=== PATIENT | male | born 1990 | race Caucasian/White ===

== ENCOUNTER 2020-12-06 13:36 | Emergency (ER) | payer BC ==
[2020-12-06] MEDS ORDERED: Ondansetron 4 MG/2 ML SDV ONE (13:47)
[2020-12-06] MEDS ORDERED: Sodium Chloride 0.9% 2.5 ML Syringe FLUSH PRN (13:51)
[2020-12-06] MEDS ORDERED: Sodium Chloride 0.9% 10 ML Syringe FLUSH PRN (13:51)
[2020-12-06] MEDS ORDERED: Sodium Chloride 0.9% 1,000 ML IV ONE (13:53)
[2020-12-06] MEDS ORDERED: Ondansetron 4 MG/2 ML SDV IVPUSH ONE (13:56)
[2020-12-06] MEDS ORDERED: LORazepam 2 MG/ML SDV IVPUSH ONE (14:28)
[2020-12-06] MEDS ORDERED: LORazepam 2 MG/ML SDV ONE (14:29)
[2020-12-06] MEDS ORDERED: LEVETIRACETAM IV STA ×2 (14:34)
[2020-12-06] MEDS ORDERED: WATER IV STA ×2 (14:34)
[2020-12-06] MEDS ORDERED: DEXTROSE 5% IV STA ×2 (14:34)
--- NOTE | 2020-12-06 14:48 | EDM.PDOC ---
ED HPI GENERAL MEDICAL PROBLEM - General Chief Complaint: Neurological Problem Stated Complaint: TRAUMA CODE Time Seen by Provider: 12/06/20 14:06 Source of Information: Reports: Patient History Limitations: Reports: No Limitations - History of Present Illness INITIAL COMMENTS - FREE TEXT/NARRATIVE: HISTORY AND PHYSICAL: History of present illness: Patient is a 30-year-old male who presents emergency room today via EMS with concern of seizure-like activity and head injury that occurred just prior to travel to the emergency room. According to EMS, patient was at work and was walking across a field when he collapsed, hit the back of his head on the bumper and states that he continued to have 2 consecutive seizures that were grand mal and witnessed by employees. is here at bedside who states patient has no health history and has never had a seizure disorder before. Patients states that 1 week ago, patient was sick after working out and states that he was running on a treadmill and complained of a headache and was vomiting. states that since then, he has been better and has not been complaining of anything. Upon arrival to the ED, patient appears to be in a postictal state but is complaining of a headache. Patient does not have a cervical collar via EMS and the cervical collar was quickly placed upon arrival to the ED. Patient is actively vomiting on exam. Patient is alert and oriented to person, place but not time. Review of systems: As per history of present illness and below otherwise all systems reviewed and negative. Past medical history: As per history of present illness and as reviewed below otherwise noncontributory. Surgical history: As per history of present illness and as reviewed below otherwise noncontributory. Social history: See social history for further information Family history: As per history of present illness and as reviewed below otherwise noncontributory. Physical exam: General: Patient is confused but alert to person, place but not time. Actively vomiting on exam. No cervical collar via EMS. Vitals stable. HEENT: Atraumatic, normocephalic, pupils equal and reactive bilaterally, negative for conjunctival pallor or scleral icterus, mucous membranes moist, throat clear, nontender, trachea midline. No drooling or trismus noted. No meningeal signs. No hot potato voice noted. Lungs: Clear to auscultation, breath sounds equal bilaterally, chest nontender. Heart: S1S2, regular rate and rhythm without overt murmur Abdomen: Soft, nondistended, nontender. Negative for masses or hepatospleno megaly. Negative for costovertebral tenderness. Pelvis: Stable nontender. Genitourinary: Deferred. Rectal: Tone intact. Hemoccult negative. Skin: Intact, warm, dry. No lesions or rashes noted. Extremities: No obvious deformity of the complete spine. No step-offs, crepitus, or point tenderness palpation of the complete spine. Otherwise, atraumatic, negative for cords or calf pain. Neurovascular unremarkable. Neuro: Patient is post-ictal confused but alert to person, place but not time. Patient does not move his left lower ankle/digits. Patient does have intact sensation to all extremities and able to move bilateral upper extremities and RLE. Able to bend left knee/hip. Bilateral radial pulses intact DP/PT pulses intact. Patient does have some twitching (extrapyramidal-like) movements of his mouth periodically on exam. Notes: Dr. Sanchez directly involved in patient care. Upon arrival to the ED, patient was vitally stable, he was confused but was alert to person and place but mildly confused about time. On exam, cervical collar was placed immediately upon arrival to the ED as patient did not have 1 intact via EMS. Patient does have rectal tone on exam but does have inability to move his left ankle and digits but is able to move the left knee. Patient is otherwise able to move all extremities and has no tenderness of his spine on exam. After patient had come back from his head CT scan, he did begin actively seizing on exam. 4 mg of IV Ativan was given immediately and patient had stopped shaking. Loading dose of Keppra also given at this time. However, he was not protecting his airway and had secretions. Because of his inability to protect his airway, it was decided that patient should be intubated for airway protection. Dr. Sanchez is at bedside and performing intubation. See Dr. Sanchez's dictation for further RSI sequence intubation dictation. Prior to radiology interpretation, I did see that patient does have a large brain bleed on my examination of his head CT. Flight was placed on standby at this time. I did call [facility] and spoke to Dr. Begum who states that at this time, there are no ICU bed capability at their facility but states that if all other places in [place] do not have ICU beds, they can accept patient to wait in the emergency room. I did call the [facility] on-call number and they state that no other beds have any ICU capability. Head CT does show extensive subarachnoid hemorrhage consistent with ruptured right anterior communicating artery aneurysm. Large clot seen medial to the right frontal lobe along the anterior interhemispheric fissure. Mild mass- effect with mild effacement of the right lateral ventricle and 5 mm right to left midline shift. No sign of descending transtentorial herniation. Did call and speak to the neurosurgeon on-call for [facility], Dr. Lane, and thoroughly discussed patient's case. He states the only place in the [facility] that addresses aneurysm bleeds is . I did call and speak to the neurosurgeon on-call for , Dr. Aguilar, and thoroughly discussed patient's case. Accepting of transfer. Flight arranged. Post intubation shows that patient is vitally stable with a blood pressure 144/84 and otherwise vitally stable. Flight at bedside and patient transferred to flight care in stable but critical condition. Nursing staff has received a call from the flight staff that they are no longer able to fly to [place] due to weather concern. I have made multiple calls to other facilities ([facility], [facility], [facility]-while on the phone with [facility], flight staff called back stating they are able to make an alternate route to [place]) There was a delay in patient transfer due to this. Diagnostics: CBC, CMP, lactic acid, troponin, prolactin, etoh alcohol, urine drug screen, UA, Head CT w/o cont, cervical spine CT Therapeutics: Fentanyl, Keppra, Ativan, nicardipine gtt (titrate for bp goal <140/90), Zofran, propofol (Intubation/RSI performed by Dr. 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 Aguilar Critical care time is exclusive of billable procedures and the time to perform these procedures. Critical care time was used to prevent vital system organ failure and deterioration. Critical care time includes bedside management and high-complexity decision making requiring my highest level of mental preparedness and attention. This includes reviewing the patient's chart and prior medical records, ordering and reviewing interpreting laboratory studies and imaging results, interpretation of vital signs and EKG, pulse oximetry, and discussion with the admitting team along with flight and nursing staff. Patient presented with multiple critical physical exam findings and imaging that required immediate intervention, acute respiratory failure intubation and transfer to a higher level facility for continuation of treatment CC Time: 90 minutes Definitive disposition and diagnosis as appropriate pending reevaluation and review of above. headache Pain Score (Numeric/FACES): 6 - Related Data Allergies Allergy/AdvReac Type Severity Reaction Status Date / Time No Known Allergies Allergy Verified 12/06/20 13:59 Home Meds: Home Meds . [No Known Home Meds] 02/16/15 [History] Past Medical History - Past Health History Medical/Surgical History: Denies Medical/Surgical History - Infectious Disease History Infectious Disease History: Reports: Chicken Pox - Past Surgical History GI Surgical History: Reports: Appendectomy Social & Family History - Family History Family Medical History: No Pertinent Family History - Tobacco Use Tobacco Use Status *Q: Current Every Day Tobacco User Years of Tobacco use: 1 Packs/Tins Daily: 1 - Recreational Drug Use Recreational Drug Use: No ED ROS GENERAL - Review of Systems Review Of Systems: Comprehensive ROS is negative, except as noted in HPI. ED EXAM, GENERAL - Physical Exam Exam: See Below (see dictation) Course - Vital Signs Last Recorded V/S: Last Vital Signs Temp 98.2 F 12/06/20 15:57 Pulse 84 12/06/20 15:57 Resp 20 12/06/20 15:57 BP 139/82 12/06/20 15:57 Pulse Ox 100 12/06/20 15:57 - Orders/Labs/Meds Orders: Active Orders 24 hr Category Date Time Status REFLEX LACTIC ACID YES OR NO [CHEM] Routine Lab 12/06/20 14:52 Received Desired Level of Sedation (RASS) [AST] Click to Edit Oth 12/06/20 15:19 Ordered Saline Lock Insert [OM.PC] Stat Oth 12/06/20 13:51 Ordered Labs: Laboratory Tests 12/06/20 12/06/20 12/06/20 Range/Units 14:01 14:01 14:01 WBC 13.77 H (4.0-11.0) K/uL RBC 4.71 (4.50-5.90) M/uL Hgb 14.1 (13.0-17.0) g/dL Hct 40.6 (38.0-50.0) % MCV 86.2 (80.0-98.0) fL MCH 29.9 (27.0-32.0) pg MCHC 34.7 (31.0-37.0) g/dL RDW Std Deviation 38.6 (28.0-62.0) fl RDW Coeff of Abel 12 (11.0-15.0) % Plt Count 349 (150-400) K/uL MPV 9.40 (7.40-12.00) fL Neut % (Auto) 80.5 H (48.0-80.0) % Lymph % (Auto) 10.1 L (16.0-40.0) % [place] % (Auto) 8.4 (0.0-15.0) % Eos % (Auto) 0.8 (0.0-7.0) % Baso % (Auto) 0.2 (0.0-1.5) % Neut # (Auto) 11.1 H (1.4-5.7) K/uL Lymph # (Auto) 1.4 (0.6-2.4) K/uL [place] # (Auto) 1.2 H (0.0-0.8) K/uL Eos # (Auto) 0.1 (0.0-0.7) K/uL Baso # (Auto) 0.0 (0.0-0.1) K/uL Nucleated RBC % 0.0 /100WBC Nucleated RBCs # 0 K/uL Sodium 142 (136-148) mmol/L Potassium 4.0 (3.5-5.1) mmol/L Chloride 105 (98-107) mmol/L Carbon Dioxide 27.5 (21.0-32.0) mmol/L BUN 19 H (7.0-18.0) mg/dL Creatinine 1.2 (0.8-1.3) mg/dL Est Cr Clr Drug Dosing 93.24 mL/min Estimated GFR (MDRD) > 60.0 ml/min Glucose 154 H (74-106) mg/dL Lactic Acid 3.3 H* (0.4-2.0) mmol/L Calcium 8.3 L (8.5-10.1) mg/dL Total Bilirubin 0.8 (0.2-1.0) mg/dL AST 17 (15-37) IU/L ALT 29 (14-63) IU/L Alkaline Phosphatase 67 (46-116) U/L Creatine Kinase 59 (26-308) U/L Troponin I < 0.050 (0.000-0.056) ng/mL Total Protein 6.9 (6.4-8.2) g/dL Albumin 3.9 (3.4-5.0) g/dL Globulin 3.0 (2.6-4.0) g/dL Albumin/Globulin Ratio 1.3 (0.9-1.6) Prolactin 45.7 ng/mL Urine Color Urine Appearance Urine pH (5.0-8.0) Ur Specific [place] (1.001-1.035) Urine Protein (NEGATIVE) mg/dL Urine Glucose (UA) (NEGATIVE) mg/dL Urine Ketones (NEGATIVE) mg/dL Urine Occult Blood (NEGATIVE) Urine Nitrite (NEGATIVE) Urine Bilirubin (NEGATIVE) Urine Urobilinogen (<2.0) EU/dL Ur Leukocyte Esterase (NEGATIVE) Urine RBC (0-2/HPF) Urine WBC (0-5/HPF) Ur Epithelial Cells (NONE-FEW) Urine Bacteria (NEGATIVE) Urine Mucus (NONE-MOD) Urine Opiates Screen (NEGATIVE) Ur Oxycodone Screen (NEGATIVE) Urine Methadone Screen (NEGATIVE) Ur Barbiturates Screen (NEGATIVE) Ur Phencyclidine Scrn (NEGATIVE) Ur Amphetamine Screen (NEGATIVE) U Methamphetamines Scrn (NEGATIVE) U Benzodiazepines Scrn (NEGATIVE) U Cocaine Metab Screen (NEGATIVE) U Marijuana (THC) Screen (NEGATIVE) Ethyl Alcohol < 3.0 mg/dL SARS-CoV-2 RNA (VENKAT) (NEGATIVE) Blood Type Antibody Screen 12/06/20 12/06/20 12/06/20 Range/Units 14:01 15:31 15:31 WBC (4.0-11.0) K/uL RBC (4.50-5.90) M/uL Hgb (13.0-17.0) g/dL Hct (38.0-50.0) % MCV (80.0-98.0) fL MCH (27.0-32.0) pg MCHC (31.0-37.0) g/dL RDW Std Deviation (28.0-62.0) fl RDW Coeff of Abel (11.0-15.0) % Plt Count (150-400) K/uL MPV (7.40-12.00) fL Neut % (Auto) (48.0-80.0) % Lymph % (Auto) (16.0-40.0) % [place] % (Auto) (0.0-15.0) % Eos % (Auto) (0.0-7.0) % Baso % (Auto) (0.0-1.5) % Neut # (Auto) (1.4-5.7) K/uL Lymph # (Auto) (0.6-2.4) K/uL [place] # (Auto) (0.0-0.8) K/uL Eos # (Auto) (0.0-0.7) K/uL Baso # (Auto) (0.0-0.1) K/uL Nucleated RBC % /100WBC Nucleated RBCs # K/uL Sodium (136-148) mmol/L Potassium (3.5-5.1) mmol/L Chloride (98-107) mmol/L Carbon Dioxide (21.0-32.0) mmol/L BUN (7.0-18.0) mg/dL Creatinine (0.8-1.3) mg/dL Est Cr Clr Drug Dosing mL/min Estimated GFR (MDRD) ml/min Glucose (74-106) mg/dL Lactic Acid (0.4-2.0) mmol/L Calcium (8.5-10.1) mg/dL Total Bilirubin (0.2-1.0) mg/dL AST (15-37) IU/L ALT (14-63) IU/L Alkaline Phosphatase (46-116) U/L Creatine Kinase (26-308) U/L Troponin I (0.000-0.056) ng/mL Total Protein (6.4-8.2) g/dL Albumin (3.4-5.0) g/dL Globulin (2.6-4.0) g/dL Albumin/Globulin Ratio (0.9-1.6) Prolactin ng/mL Urine Color YELLOW Urine Appearance CLEAR Urine pH 6.0 (5.0-8.0) Ur Specific [place] >= 1.030 (1.001-1.035) Urine Protein TRACE H (NEGATIVE) mg/dL Urine Glucose (UA) NEGATIVE (NEGATIVE) mg/dL Urine Ketones TRACE H (NEGATIVE) mg/dL Urine Occult Blood NEGATIVE (NEGATIVE) Urine Nitrite NEGATIVE (NEGATIVE) Urine Bilirubin NEGATIVE (NEGATIVE) Urine Urobilinogen 0.2 (<2.0) EU/dL Ur Leukocyte Esterase NEGATIVE (NEGATIVE) Urine RBC 0-1 (0-2/HPF) Urine WBC 0-2 (0-5/HPF) Ur Epithelial Cells OCCASIONAL (NONE-FEW) Urine Bacteria FEW (NEGATIVE) Urine Mucus LIGHT (NONE-MOD) Urine Opiates Screen NEGATIVE (NEGATIVE) Ur Oxycodone Screen NEGATIVE (NEGATIVE) Urine Methadone Screen NEGATIVE (NEGATIVE) Ur Barbiturates Screen NEGATIVE (NEGATIVE) Ur Phencyclidine Scrn NEGATIVE (NEGATIVE) Ur Amphetamine Screen NEGATIVE (NEGATIVE) U Methamphetamines Scrn NEGATIVE (NEGATIVE) U Benzodiazepines Scrn NEGATIVE (NEGATIVE) U Cocaine Metab Screen NEGATIVE (NEGATIVE) U Marijuana (THC) Screen NEGATIVE (NEGATIVE) Ethyl Alcohol mg/dL SARS-CoV-2 RNA (VENKAT) (NEGATIVE) Blood Type O POSITIVE Antibody Screen NEGATIVE 12/06/20 Range/Units 15:31 WBC (4.0-11.0) K/uL RBC (4.50-5.90) M/uL Hgb (13.0-17.0) g/dL Hct (38.0-50.0) % MCV (80.0-98.0) fL MCH (27.0-32.0) pg MCHC (31.0-37.0) g/dL RDW Std Deviation (28.0-62.0) fl RDW Coeff of Abel (11.0-15.0) % Plt Count (150-400) K/uL MPV (7.40-12.00) fL Neut % (Auto) (48.0-80.0) % Lymph % (Auto) (16.0-40.0) % [place] % (Auto) (0.0-15.0) % Eos % (Auto) (0.0-7.0) % Baso % (Auto) (0.0-1.5) % Neut # (Auto) (1.4-5.7) K/uL Lymph # (Auto) (0.6-2.4) K/uL [place] # (Auto) (0.0-0.8) K/uL Eos # (Auto) (0.0-0.7) K/uL Baso # (Auto) (0.0-0.1) K/uL Nucleated RBC % /100WBC Nucleated RBCs # K/uL Sodium (136-148) mmol/L Potassium (3.5-5.1) mmol/L Chloride (98-107) mmol/L Carbon Dioxide (21.0-32.0) mmol/L BUN (7.0-18.0) mg/dL Creatinine (0.8-1.3) mg/dL Est Cr Clr Drug Dosing mL/min Estimated GFR (MDRD) ml/min Glucose (74-106) mg/dL Lactic Acid (0.4-2.0) mmol/L Calcium (8.5-10.1) mg/dL Total Bilirubin (0.2-1.0) mg/dL AST (15-37) IU/L ALT (14-63) IU/L Alkaline Phosphatase (46-116) U/L Creatine Kinase (26-308) U/L Troponin I (0.000-0.056) ng/mL Total Protein (6.4-8.2) g/dL Albumin (3.4-5.0) g/dL Globulin (2.6-4.0) g/dL Albumin/Globulin Ratio (0.9-1.6) Prolactin ng/mL Urine Color Urine Appearance Urine pH (5.0-8.0) Ur Specific [place] (1.001-1.035) Urine Protein (NEGATIVE) mg/dL Urine Glucose (UA) (NEGATIVE) mg/dL Urine Ketones (NEGATIVE) mg/dL Urine Occult Blood (NEGATIVE) Urine Nitrite (NEGATIVE) Urine Bilirubin (NEGATIVE) Urine Urobilinogen (<2.0) EU/dL Ur Leukocyte Esterase (NEGATIVE) Urine RBC (0-2/HPF) Urine WBC (0-5/HPF) Ur Epithelial Cells (NONE-FEW) Urine Bacteria (NEGATIVE) Urine Mucus (NONE-MOD) Urine Opiates Screen (NEGATIVE) Ur Oxycodone Screen (NEGATIVE) Urine Methadone Screen (NEGATIVE) Ur Barbiturates Screen (NEGATIVE) Ur Phencyclidine Scrn (NEGATIVE) Ur Amphetamine Screen (NEGATIVE) U Methamphetamines Scrn (NEGATIVE) U Benzodiazepines Scrn (NEGATIVE) U Cocaine Metab Screen (NEGATIVE) U Marijuana (THC) Screen (NEGATIVE) Ethyl Alcohol mg/dL SARS-CoV-2 RNA (VENKAT) NEGATIVE (NEGATIVE) Blood Type Antibody Screen Meds: Medications Discontinued Medications Generic Name Dose Route Start Last Admin Trade Name Antolin PRN Reason Stop Dose Admin Fentanyl Confirm 12/06/20 14:56 12/06/20 15:24 Fentanyl 100 Mcg/2 Ml Sdv Administered 12/06/20 14:57 Not Given Dose 100 mcg .ROUTE .STK-MED ONE Sodium Chloride 1,000 mls @ 999 mls/hr 12/06/20 13:53 12/06/20 13:58 Normal Saline IV 12/06/20 14:53 999 mls/hr STAT ONE Administration Levetiracetam 4,350 mg/ 143.5 mls @ 460 mls/hr 12/06/20 14:34 12/06/20 15:09 Dextrose/Water IV 12/06/20 14:52 460 mls/hr NOW STA Administration Propofol Confirm 12/06/20 14:56 12/06/20 15:23 Diprivan 100 Ml Administered 12/06/20 14:57 Not Given Dose 100 mls @ as directed .ROUTE .STK-MED ONE Nicardipine HCl Confirm 12/06/20 14:58 12/06/20 15:07 Cardene In Ns 20 Mg/200 Ml Administered 12/06/20 14:59 Not Given Dose 20 mg in 200 mls @ as directed .ROUTE .STK-MED ONE Sodium Chloride 500 mls @ 72 mls/hr 12/06/20 15:11 12/06/20 15:24 Sodium Chloride 3% IV 12/06/20 22:07 72 mls/hr STAT STA Administration Nicardipine HCl 20 mg in 200 mls @ 50 mls/hr 12/06/20 15:15 12/06/20 15:23 Cardene In Ns 20 Mg/200 Ml IV 5 mg/hr TITRATE MARK 50 mls/hr Administration Protocol 5 MG/HR Propofol 100 mls @ 2.177 mls/hr 12/06/20 15:30 12/06/20 15:24 Diprivan 100 Ml IV 5 mcg/kg/min TITRATE MARK 2.177 mls/hr Administration Protocol 5 MCG/KG/MIN Lorazepam 4 mg 12/06/20 14:28 12/06/20 15:10 Lorazepam 2 Mg/Ml Sdv IVPUSH 12/06/20 14:29 4 mg ONETIME ONE Administration Lorazepam Confirm 12/06/20 14:29 12/06/20 15:07 Lorazepam 2 Mg/Ml Sdv Administered 12/06/20 14:30 Not Given Dose 4 mg .ROUTE .STK-MED ONE Ondansetron HCl Confirm 12/06/20 13:47 12/06/20 13:58 Ondansetron 4 Mg/2 Ml Sdv Administered 12/06/20 13:48 Not Given Dose 4 mg .ROUTE .STK-MED ONE Ondansetron HCl 4 mg 12/06/20 13:56 12/06/20 13:58 Ondansetron 4 Mg/2 Ml Sdv IVPUSH 12/06/20 13:57 4 mg ONETIME ONE Administration Sodium Chloride 10 ml 12/06/20 13:51 12/06/20 13:58 Sodium Chloride 0.9% 10 Ml Syringe FLUSH 10 ml ASDIRECTED PRN Administration Keep Vein Open Sodium Chloride 2.5 ml 12/06/20 13:51 12/06/20 13:58 Sodium Chloride 0.9% 2.5 Ml Syringe FLUSH 2.5 ml ASDIRECTED PRN Administration Keep Vein Open Departure - Departure Time of Disposition: 15:47 Disposition: DC/Tfer to Acute Hospital 02 Condition: Critical Clinical Impression: Anterior communicating artery aneurysm, Cerebral aneurysm rupture, Seizure - Discharge Information Referrals: PCP,None [Primary Care Provider] - Forms: ED Department Discharge Sepsis Event Note (ED) - Evaluation Sepsis Screening Result: No Definite Risk - Focused Exam Vital Signs: Vital Signs Temp Pulse Resp BP Pulse Ox 12/06/20 15:57 98.2 F 84 20 139/82 100 12/06/20 15:37 98.2 F 86 20 144/84 H 98 12/06/20 15:33 80 20 144/84 H 98 12/06/20 15:28 92 20 138/84 98 12/06/20 15:20 98.2 F 90 20 148/86 H 98 12/06/20 15:14 105 H 20 139/80 98 12/06/20 14:50 98.0 F 50 L 16 188/98 H 99 12/06/20 14:20 70 20 178/90 H 98 12/06/20 13:55 97.1 F 66 12 137/88 99 - My Orders Last 24 Hours: My Active Orders 12/06/20 13:51 Saline Lock Insert [OM.PC] Stat 12/06/20 14:52 REFLEX LACTIC ACID YES OR NO [CHEM] Routine - Assessment/Plan Last 24 Hours: My Active Orders 12/06/20 13:51 Saline Lock Insert [OM.PC] Stat 12/06/20 14:52 REFLEX LACTIC ACID YES OR NO [CHEM] Routine
[2020-12-06] MEDS ORDERED: fentaNYL 100 MCG/2 ML SDV ONE (14:56)
[2020-12-06] MEDS ORDERED: propofoL 100 ML ONE (14:56)
[2020-12-06] MEDS ORDERED: fentaNYL 50 MCG/ML SDV IVPUSH ONE (14:56)
[2020-12-06] MEDS ORDERED: niCARdipine/Normal Saline 20 MG/200 ML BAG ONE (14:58)
[2020-12-06 15:01] LABS: BLOOD UREA NITROGEN,BUN 19 mg/dL (7.0-18.0); CARBON DIOXIDE,CO2 27.5 mmol/L (21.0-32.0); CHLORIDE,CL 105 mmol/L (98-107); GLUCOSE RANDOM 154 mg/dL (74-106); SODIUM,NA 142 mmol/L (136-148)
[2020-12-06] MEDS ORDERED: Sodium Chloride 3% 500 ML IV STA (15:11)
[2020-12-06] MEDS ORDERED: niCARdipine/Normal Saline 20 MG/200 ML BAG IV SCH (15:15)
--- NOTE | 2020-12-06 15:22 | CT ---
INDICATION: Possible seizure. Status post fall. COMPARISON: None available. TECHNIQUE: CT examination of the head was performed with 5 mm thick axial and 2.5 mm thick coronal and sagittal sections without intravenous contrast. Images were obtained from the vertex of the skull through the skull base, and I examined the images with the brain and bone windows. Please note that all CT scans at this facility use dose modulation, iterative reconstruction, and/or weight-based dosing when appropriate to reduce radiation dose to as low as reasonably achievable. FINDINGS: : There is a large amount subarachnoid hemorrhage, with a large hematoma seen medial to the left frontal lobe adjacent to the anterior interhemispheric fissure. Blood is seen in the subarachnoid space throughout the basal cisterns, extending throughout the entire interhemispheric fissure with more subarachnoid hemorrhage seen along the right tentorium than the left. The findings are most consistent with a ruptured right anterior communicating artery aneurysm. There is no sign of intraparenchymal hemorrhage and there is no sign intraventricular hemorrhage. There is mild mass effect, with mild effacement of the right lateral ventricle compared to the left. There is mild [id number] midline shift of 5 millimeters. There is no sign of descending transtentorial herniation. The rest of the brain parenchyma is normal in appearance. The visualized portions of the orbits are normal in appearance. The visualized portions of the paranasal sinuses and mastoids are clear. The osseous structures are normal in their appearance with no sign of abnormality in the skull base or calvarium. I discussed the findings with Dr. Kendrick at 1512 hours on 12/06/2020. IMPRESSION: Extensive subarachnoid hemorrhage consistent with a ruptured right anterior communicating artery aneurysm. Large clot seen medial to the right frontal lobe along the anterior interhemispheric fissure. Mild mass effect with mild effacement of the right lateral ventricle and 5 millimeters of [id number] midline shift. No sign of descending transtentorial herniation. Please note that all CT scans at this facility use dose modulation, iterative reconstruction, and/or weight-based dosing when appropriate to reduce radiation dose to as low as reasonably achievable. Dictated by Humberto Quezada MD @ 12/06/2020 3:20:33 PM (Electronically Signed)
--- NOTE | 2020-12-06 15:26 | CT ---
INDICATION: Fall after possible seizure. COMPARISON: COMPARISON DATE TECHNIQUE: CT examination of the cervical spine is performed without contrast using spiral technique. 1.5 mm thick axial, and 2 mm thick sagittal and coronal reconstructions were made. Please note that all CT scans at this facility use dose modulation, iterative reconstruction, and/or weight-based dosing when appropriate to reduce radiation dose to as low as reasonably achievable. FINDINGS: : There is tilting of the head toward the left suggesting left-sided muscular spasm. There is no sign of fracture or subluxation. The cervical vertebral bodies and intervertebral discs are normal in height and are in anatomic alignment. There is no sign of prevertebral soft tissue swelling. Incidental note is made of well-circumscribed sclerosis of the medial lateral mass of the C4 vertebral body on the right, of uncertain significance. No additional sclerotic lesions are seen elsewhere in the cervical spine. This may simply be a bone island. The airway structures are normal in appearance. The visualized skull base is normal in appearance. As seen on the accompanying CT of the head, there is a mild amount blood along the right tentorium, seen to be subarachnoid hemorrhage on the accompanying CT of the head. The rest of the visualized posterior fossa is normal in appearance. The apices of the lungs are clear. IMPRESSION: No sign of acute osseous injury to the cervical spine. Tilting of the head towards the left suggest left-sided muscular spasm. Mild amount of blood seen along the right tentorium, seen to be mild subarachnoid hemorrhage on the accompanying CT of the head. Please note that all CT scans at this facility use dose modulation, iterative reconstruction, and/or weight-based dosing when appropriate to reduce radiation dose to as low as reasonably achievable. Dictated by Humberto Quezada MD @ 12/06/2020 3:25:22 PM (Electronically Signed)
[2020-12-06] MEDS ORDERED: propofoL 100 ML IV SCH (15:30)
[2020-12-06 15:58] VITALS: BP 139/82; PULSE 84
--- NOTE | 2020-12-06 16:23 | CR ---
INDICATION: Trauma, post intubation TECHNIQUE: Supine AP view of the chest COMPARISON: None FINDINGS: Endotracheal tube tip resides approximately 2 cm above the archana. Distal end of gastric tube is partially visualized in the left upper quadrant, presumably in the stomach. There is no significant pulmonary opacity. Supine technique limits assessment for pleural effusion and pneumothorax, however none are seen. The cardiomediastinal silhouette is normal. The visualized osseous structures are unremarkable. IMPRESSION: Endotracheal and gastric tubes in expected position. Otherwise no acute radiographic abnormality demonstrated. Dictated by Olena Gonzalez MD @ 12/06/2020 4:20:36 PM (Electronically Signed)
--- NOTE | 2020-12-06 16:25 | CR ---
INDICATION: Trauma. TECHNIQUE: AP view of the pelvis. COMPARISON: None. FINDINGS: No fracture or subluxation/diastasis. IMPRESSION : Negative pelvis. Dictated by Benji Banks MD @ 12/06/2020 4:23:14 PM (Electronically Signed)
[2020-12-06] MEDS ORDERED: Rocuronium 100 MG/10 ML MDV ONE (17:00)
[2020-12-06] MEDS ORDERED: Etomidate 2 MG/ML 20 ML SDV IVPUSH ONE (17:00)
--- NOTE | 2020-12-06 21:10 | PCM.EKG ---
#1 Interpretation EKG Date: 12/06/20 Time: 13:53 Rhythm: NSR Rate (Beats/Min): 67 [place]: Normal P-Wave: Present QRS: Normal ST-T: Normal QT: Normal Comparison: NA - No Prior EKG EKG Interpretation Comments: Sinus Rhythm
[2020-12-07] MEDS ORDERED: fentaNYL 50 MCG/ML SDV IVPUSH ONE (08:28)
[2020-12-07] MEDS ORDERED: Rocuronium 50 MG/5 ML Vial IVPUSH ONE (14:19)
[2020-12-07] MEDS ORDERED: Propofol 200 MG/20 ML SDV IVPUSH ONE ×2 (14:19→14:30)
== END 2020-12-06 16:05 ==
LOC: MW.ED 13:36
DX: R56.9 Unspecified convulsions (principal); I60.7 Nontraumatic subarachnoid hemorrhage from unspecified intracranial artery; Z72.0 Tobacco use; Z20.822 Contact with and (suspected) exposure to COVID-19
CPT/HCPCS: 31500; 36415; 51702; 70450; 71045; 72125; 72170; 80053; 80305; 80307; 81001; 82550; 83605; 84146; 84484; 85025; 86850; 86900; 86901; 87635; 93005; 96365; 96368; 96375; 99291; J1953; J2060; J2405; J2704; J3010; J7030; J7131; J0330; J3490; U0002